=== PATIENT | female | born 1970 | race Caucasian/White ===

== ENCOUNTER → 2021-03-28 | Outpatient (CLI) | payer BC ==
[~2021-03-28] MED LIST: CARDIZEM60 MG PO; CARDURA4 MG PO; NORVASC10 MG PO
== END ==
LOC: SJCVCIMAG 08:07
PROVIDERS: ATTEND Internal Medicine Cardiovascular Disease
DX: I08.1 Rheumatic disorders of both mitral and tricuspid valves (principal); I47.1 Supraventricular tachycardia

== ENCOUNTER → 2021-04-07 | Outpatient (CLI) | payer BC ==
[~2021-04-07] VITALS: Ht 152.4 cm; Wt 72.6 kg
[~2021-04-07] MED LIST changes: +AMBIEN 10 MG TA10 MG PO; +CARVEDILOL12.5 MG PO; +COZAAR 25 MG TA25 M1 PO; +XANAX 0.5 MG0.5 MG PO
[2021-04-07 07:36] VITALS: BP 146/90
[2021-04-07 08:02] LABS: ABSOLUTE NEUTROPHILS 5.5 thou/uL (1.4-8.2); BASOPHILS 0.8 % (0.0-2.0); EOSINOPHILS 1.9 % (0.0-3.0); HEMATOCRIT 45.6 % (37.0-47.0); HEMOGLOBIN 15.1 gm/dL (12.0-15.0); LYMPHOCYTES 25.6 % (24.0-44.0); MCH 29.9 pg (26.0-34.0); MCHC 33.1 g/dL (28.0-37.0); MCV 90.3 fL (80.0-100.0); MONOCYTES 7.2 % (1.0-8.0); PLATELET COUNT 234 thou/uL (150-400); POLYS 64.5 % (36.0-66.0); RBC 5.05 mil/uL (4.20-5.00); RDW 12.7 % (10.5-14.5); WBC 8.5 thou/uL (4.0-11.0)
[2021-04-07 08:05] LABS: CALCIUM 8.7 mg/dL (8.5-10.1); CREATININE 0.8 mg/dL (0.6-1.0); POTASSIUM 3.7 mmol/L (3.5-5.1)
[2021-04-07 08:11] LABS: ALBUMIN 3.8 g/dL (3.4-5.0); TOTAL BILIRUBIN 0.3 mg/dL (0.2-1.0); TOTAL PROTEIN 6.9 g/dL (6.4-8.2)
[2021-04-07 08:19] LABS: APTT 24.6 Seconds (24.5-32.8); INR 0.95; PROTIME 10.4 Seconds (10.5-12.1)
--- NOTE | 2021-04-07 16:28 | P ---
[facility] [address] [place] [address] PROCEDURE REPORT Name: CECILIA LANDON Room #: REG MARTHA AlvaradoKorina#: [id number] Admission: 04/07/21 Attend Phys: Edenilson Brown MD Discharge: Date of : 70 Report #: [id number] THIS REPORT FOR: cc: Anshul Tee Gregg R. DO Couchonnal, Luis F. MD ~ DATE OF SERVICE: 04/07/2021 EP STUDY PREOPERATIVE DIAGNOSIS: Supraventricular tachycardia. POSTOPERATIVE DIAGNOSIS: Supraventricular tachycardia. HISTORY: The patient is a 50-year-old patient with a history of palpitations, possible SVT, here for an EP study and ablation. PROCEDURES PERFORMED: 1. EP study, CPT code 32846. 2. EP with left atrial pacing recording, CPT code 75932. 3. Program stimulation pacing after IV drug infusion, CPT code 61797. DESCRIPTION OF PROCEDURE: The patient was brought to the EP laboratory in a fasting and sedated state, prepped and draped in a standard fashion. I obtained access to the right femoral vein x 3, placing an 8 and two 6-Tanzanian short sheaths in the left femoral vein, I placed a 7-Tanzanian short sheath. Under fluoroscopy, I placed a decapolar catheter into the coronary sinus for left atrial pacing and recording and I then placed 3 quadripolar catheters at the HRA, His and RV positions. At baseline, the patient was in sinus rhythm with a sinus cycle length of 665 milliseconds, CA interval 160 milliseconds, QRS duration 70 milliseconds, QT interval 354 milliseconds, AH interval 76 milliseconds, HV interval 41 milliseconds. Atrial burst pacing was performed and AV block was noted at 280 milliseconds. Atrial ERP was noted at 270 milliseconds at a 500-millisecond basic drive cycle length. Double atrial extrastimuli were delivered and no SVT was induced. With atrial pacing, there was no evidence of a slow pathway. Next, ventricular pacing was performed and there was no evidence of VA conduction at baseline. Isoproterenol infusion was initiated at 2 mcg per minute. AV block was noted to be less than 220. Atrial ERP was noted at 140 milliseconds at a 300-millisecond basic drive cycle length. VA conduction demonstrated VA block at 290 milliseconds and ventricular ERP was noted at 200 milliseconds at a 300-millisecond basic drive cycle length. VA conduction was midline and decremental. Isoproterenol was decreased to 1 mcg per minute. Atrial ERP was 160 at 350 milliseconds. VA block was noted at 270 milliseconds and AV block was noted at 260 milliseconds. I performed a very aggressive atrial and [facility] [address] [place] [address] PROCEDURE REPORT Name: CECILIA LANDON Room #: REG [facility] Flor#: [id number] Admission: 04/07/21 Attend Phys: Edenilson Brown MD Discharge: Date of : 70 Report #: [id number] ventricular pacing maneuvers and we could not induce any SVT nor any atrial flutter or atrial tachycardia or AFib. Isoproterenol was turned off. We continued testing and post-ablation, the patient was in sinus rhythm with sinus cycle length of 645 milliseconds, CA interval 153 milliseconds, QRS duration 80 milliseconds, QT interval 335 milliseconds, AH interval 80 milliseconds, and HV interval 47 milliseconds. As such, catheters and sheaths were pulled. Hemostasis obtained. The patient awoke neurologically and hemodynamically intact. No complications and no significant bleeding. CONCLUSIONS: 1. Comprehensive EP study with no evidence of inducible SVT. 2. Normal SA fidel function. 3. Normal AV fidel function. 4. Normal His-Purkinje function. RECOMMENDATIONS: Etiology of her palpitations is unclear, but may be related to sinus tachycardia and she can continue on beta vitaliy therapy indefinitely. <ELECTRONICALLY SIGNED> By: Edenilson Brown MD 04/07/21 1628 [id number] Edenilson Brown MD /nt
== END | disposition home or self-care (01) ==
LOC: CATH 06:26
PROVIDERS: ATTEND Internal Medicine Cardiovascular Disease
DX: I47.1 Supraventricular tachycardia (principal); I10 Essential (primary) hypertension; F41.9 Anxiety disorder, unspecified; Z98.890 Other specified postprocedural states; Z79.899 Other long term (current) drug therapy; Z88.8 Allergy status to other drugs, medicaments and biological substances; Z20.822 Contact with and (suspected) exposure to COVID-19
CPT/HCPCS: 50010; 62110; 62900